=== PATIENT | female | born 1955 | race Two or more races ===

== ENCOUNTER 2024-02-06 18:36 | Inpatient (IN) | payer OTHER ==
[~2024-02-06] VITALS: Ht 149.9 cm; Wt 97.1 kg
[~2024-02-06 18:36] MED LIST: NABUMETONE750 MG; VASOTEC10 MG
[2024-02-06] MEDS ORDERED: AROMASIN25 MG PO (18:49)
[2024-02-06] MEDS ORDERED: ZESTRIL10 M1 PO (18:49)
[2024-02-06] MEDS ORDERED: HYDROCODONE/CHLORPHEN P-STIREX 5 ML ML PO ONE (19:15)
[2024-02-06] MEDS ORDERED: LEVALBUTEROL HCL 1.25 MG/3 ML SOLUTION IH SCH (19:15)
[2024-02-06] MEDS ORDERED: AZITHROMYCIN 500 MG VIAL IV ONE ×2 (19:15→19:55)
[2024-02-06] MEDS ORDERED: METHYLPREDNISOLONE SOD SUCC 125 MG VIAL IV ONE (19:15)
[2024-02-06] MEDS ORDERED: LEVALBUTEROL HCL 1.25 MG/3 ML SOLUTION IH ONE (19:21)
[2024-02-06 19:35] LABS: ABG PH 7.455 (7.35-7.45); ABG PO2 71.1 mmHg (80-100); BASE EXCESS 0.7 mmol/l; Tco2 25.1 mmol/l
[2024-02-06] MEDS ORDERED: METHYLPREDNISOLONE SOD SUCC 125 MG VIAL ONE (19:55)
[2024-02-06 20:03] LABS: HEMATOCRIT 42.8 % (36.0-45.00); HEMOGLOBIN 14.4 g/dL (12.0-15.00); MEAN CELL VOLUME 87.4 fL (80.00-100.00); MEAN CORPUSCULAR HEMOGLOBIN 29.4 pg (27.00-32.0); MEAN CORPUSCULAR HGB CONC 33.6 g/dl (32.0-36.0); PLATELET COUNT 211 K/uL (150-450)
[2024-02-06 20:14] LABS: ALBUMIN 3.3 gm/dL (3.4-5.0); BILIRUBIN TOTAL 0.79 mg/dL (0.3-1.2); CALCIUM 9.5 mg/dL (8.5-10.1); CREATININE SERUM 0.95 mg/dL (0.55-1.02); GFR 58.85; GLOBULINA 4.6 G/DL (2.4-3.5); POTASSIUM 4.74 mEq/L (3.5-5.1); TOTAL PROTEIN 7.9 gm/dL (6.4-8.2)
[2024-02-06 20:15] LABS: allen test SATISFACTORY; o2 21 %; puncture site RADIAL LEFT
[2024-02-06] MEDS ORDERED: AZITHROMYCIN 500 MG in 0.9 % SODIUM CHLORIDE 250 ML IV SCH (20:51)
[2024-02-06] MEDS ORDERED: FAMOTIDINE/PF 20 MG in 0.9 % SODIUM CHLORIDE 100 ML IV SCH (20:52)
[2024-02-06] MEDS ORDERED: FAMOTIDINE/PF 20 MG/2 ML VIAL ONE (21:00)
[2024-02-06] MEDS ORDERED: ACETAMINOPHEN 325 MG TABLET PO PRN (21:00)
[2024-02-06] MEDS ORDERED: ALBUTEROL SULFATE 3 ML/2.5 MG AMPUL.NEB IH SCH (21:00)
[2024-02-06] MEDS ORDERED: 0.9 % SODIUM CHLORIDE 1,000 ML IV SCH (21:00)
[2024-02-06] MEDS ORDERED: ALBUTEROL SULFATE 3 ML/2.5 MG AMPUL.NEB IH ONE (21:11)
[2024-02-06] MEDS ORDERED: LISINOPRIL 10 MG TABLET PO SCH (21:11)
[2024-02-06] MEDS ORDERED: GUAIFENESIN 100 MG/5 ML BLIST.PACK PO SCH (21:18)
[2024-02-06] MEDS ORDERED: CLONAZEPAM 0.5 MG TABLET PO ONE (21:30)
[2024-02-07] MEDS ORDERED: levoFLOXacin IN DEXTROSE 5 % 150 ML IV SCH (12:41)
[2024-02-07] MEDS ORDERED: LINEZOLID IN DEXTROSE 5% 300 ML IV SCH (15:47)
[2024-02-07] MEDS ORDERED: LACTOBACILLUS ACIDOPHILUS 1 CAP CAP PO SCH (17:00)
[2024-02-07] MEDS ORDERED: CLONAZEPAM 0.5 MG TABLET PO SCH (21:00)
[2024-02-09 06:22] LABS: HEMATOCRIT 36.7 % (36.0-45.00); HEMOGLOBIN 12.5 g/dL (12.0-15.00); MEAN CORPUSCULAR HEMOGLOBIN 29.6 pg (27.00-32.0); PLATELET COUNT 221 K/uL (150-450); RED BLOOD COUNT 4.22 M/uL (4.00-6.00)
[2024-02-09 06:36] LABS: ERYTHROCYTE SEDIMENTATION RATE 40 mm/hr
[2024-02-09 06:49] LABS: ALBUMIN 2.6 gm/dL (3.4-5.0); BILIRUBIN TOTAL 0.74 mg/dL (0.3-1.2); CALCIUM 8.7 mg/dL (8.5-10.1); GFR 55.47; GLOBULINA 3.1 G/DL (2.4-3.5); POTASSIUM 4.63 mEq/L (3.5-5.1); TOTAL PROTEIN 5.7 gm/dL (6.4-8.2)
[2024-02-09 06:54] LABS: C-REACTIVE PROTEIN 2.81 MG/DL (0.00-0.29)
[2024-02-09] MEDS ORDERED: FLUCONAZOLE 200 MG TABLET PO STA (10:21)
[2024-02-09] MEDS ORDERED: CLOTRIMAZOLE 10 MG TROCHE MM SCH (17:00)
[2024-02-09] MEDS ORDERED: BISACODYL 5 MG TABLET.EC PO SCH (17:00)
[2024-02-09] MEDS ORDERED: LINEZOLID 600 MG TABLET PO SCH (21:00)
[2024-02-10] MEDS ORDERED: FLUCONAZOLE 100 MG TABLET PO SCH (09:00)
[2024-02-10] MEDS ORDERED: ALBUTEROL SULFATE 3 ML/2.5 MG AMPUL.NEB IH SCH (12:00)
[2024-02-11] MEDS ORDERED: Cyanocobalamin/Mecobalamin 1 TAB.SL SL SCH (11:47)
[2024-02-11] MEDS ORDERED: levoFLOXacin 750 MG TABLET PO STA (16:43)
[2024-02-12] MEDS ORDERED: levoFLOXacin 750 MG TABLET PO SCH (17:00)
[2024-02-12] MEDS ORDERED: ONDANSETRON HCL 4 MG in 0.9 % SODIUM CHLORIDE 50 ML IV PRN (17:30)
[2024-02-13] MEDS ORDERED: PEPCID AC20 MG PO (13:30)
[2024-02-13] MEDS ORDERED: LINEZOLID600 MG PO (13:30)
[2024-02-13] MEDS ORDERED: Neurin-Sl Tablet Sl SL (13:30)
[2024-02-13] MEDS ORDERED: Diflucan 100MG TABLE PO (13:30)
[2024-02-13] MEDS ORDERED: TUSSIN MUC100 MG/5 M PO (13:30)
[2024-02-13] MEDS ORDERED: LEVOFLOXACIN750 MG PO (13:30)
[2024-02-13] MEDS ORDERED: PROTONIX40 MG PO (13:30)
[2024-02-13] MEDS ORDERED: INTESTINEX680 M1 PO (13:30)
[2024-02-13] MEDS ORDERED: SURFAK240 M1 PO (13:30)
== END 2024-02-13 15:18 | disposition home or self-care (01) | DRG 194 ==
LOC: ER 18:38 → SURG 21:07 → SEC-K 21:07 → SURG 21:20
PROVIDERS: General Practice; ADMIT Internal Medicine; ATTEND Internal Medicine
PROC: BW24ZZZ Computerized Tomography (CT Scan) of Chest and Abdomen (ICD-10-PCS; principal; 2024-02-06)
DX: J18.9 Pneumonia, unspecified organism (principal); A90 Dengue fever [classical dengue]; C50.912 Malignant neoplasm of unspecified site of left female breast; I10 Essential (primary) hypertension; R09.02 Hypoxemia; F41.9 Anxiety disorder, unspecified